=== PATIENT | male | born 1990 | race Caucasian/White ===

== ENCOUNTER 2016-06-17 06:53 | Emergency (ER) | payer MEDICAID ==
[2016-06-17] MEDS ORDERED: KETOROLAC 30 MG/1 ML SDV IVP ONE (07:20)
[2016-06-17] MEDS ORDERED: NS 1,000 ML IV ONE (07:20)
--- NOTE | 2016-06-17 07:24 | EDPHY ---
H & P Stated Complaint: RUQ pain off and on x weeks; woke up last night with worsening pain Time Seen by Provider: 06/17/16 07:08 HPI/ROS: CHIEF COMPLAINT: Right upper quadrant pain History by patient HISTORY OF PRESENT ILLNESS: 25-year-old man with no significant past medical history presents complaining of intermittent right upper quadrant pain which he describes as sharp and has been going on and off for 1-2 weeks but then this morning he woke up with the pain it is much more severe than previous episodes and lasting much longer. He describes it as sharp, throbbing and steady. It is worse when he takes a deep breath in but he denies any shortness of breath. It is not worse with movement. It does not radiate to his back or his groin. It is not associated any nausea or vomiting. He says he does not feel like eating when he has the pain but the pain does not seem to be brought on her affected by eating. He denies any fever chills. He says he has had a cough but he does not relate this to the pain either. He denies any dysuria, urgency frequency or hematuria. There is no family history of kidney stones or clotting disorders. He smokes E cigarettes. REVIEW OF SYSTEMS: As in HPI, and all other systems reviewed and are negative - Personal History Current Tetanus/Diphtheria Vaccine: Yes Tetanus Vaccine Date: 2012 - Medical/Surgical History Hx Asthma: No Hx Chronic Respiratory Disease: No Hx Diabetes: No Hx Cardiac Disease: No Hx Renal Disease: No Hx Cirrhosis: No Hx Alcoholism: No Hx HIV/AIDS: No Hx Splenectomy or Spleen Trauma: No Other PMH: knee surgery - Family History Significant Family History: No pertinent family hx - Social History Smoking Status: Never smoked - Physical Exam Exam: General Appearance: Alert, uncomfortable appearing, diaphoretic. Eyes: Pupils equal and round no pallor or injection. ENT, Mouth: Mucous membranes moist. Respiratory: Normal, effort, There are no retractions, lungs are clear to auscultation. Cardiovascular: Regular rate and rhythm. Gastrointestinal: Abdomen is soft with mild right upper quadrant tenderness but no rebound or guarding, no Harley sign, no masses, bowel sounds normal. Back: Positive right CVA tenderness Neurological: Awake, alert and oriented x 3, no pronator drift, normal gait, no pronator drift Skin: Warm and dry, no rashes. Musculoskeletal: Neck is supple nontender. Extremities are symmetrical, full range of motion. Psychiatric: Patient has normal affect, there is no agitation. Constitutional: Initial Vital Signs Temperature (C) 36.6 C 06/17/16 06:59 Heart Rate 66 06/17/16 06:59 Respiratory Rate 20 06/17/16 06:59 Blood Pressure 161/102 H 06/17/16 06:59 O2 Sat (%) 98 06/17/16 06:59 O2 Delivery Mode Room Air Allergies/Adverse Reactions: No Known Allergies Allergy (Verified 06/17/16 07:03) Home Medications: Medication Instructions Recorded Adderall 10 MG (RX) 02/17/14 Medical Decision Making - Diagnostics Imaging Results: Imaging Impressions Chest X-Ray 06/17/16 07:43 Impression: No acute pulmonary disease. Abdomen Ultrasound 06/17/16 09:12 Impression: 1. No cholelithiasis or biliary ductal dilation. 2. Hepatomegaly. Findings and recommendations discussed with Emergency Department physician, Rebeca Ortega MD at 10:43 hour, 06/17/2016. Final report concurs with initial preliminary interpretation. ED Course/Re-evaluation: 25-year-old male presents with right upper quadrant pain without associated symptoms but with some right upper quadrant tenderness. Labs notable for elevated white blood cell count but no evidence of hepatitis, pancreatitis or biliary obstruction. Urinalysis showed no evidence of bladder infection. Ultrasound was obtained of his right upper quadrant because I was concerned about his persistent right upper quadrant tenderness however there are no signs of gallstones, cholecystitis or other abnormality per the radiologist. Patient was given IV fluids and IV Toradol with significant symptomatic improvement. At this time because his symptoms are unclear but there is no evidence of any significant systemic toxicity or serious emergent pathology. Patient was given reassurance will follow up with primary care physician of his symptoms persist. We discussed return precautions. - Data Points Laboratory Results: Laboratory Results 06/17/16 07:10 06/17/16 07:10 06/17/16 06/17/16 06/17/16 09:07 08:08 07:10 WBC RBC Hgb Hct MCV MCH MCHC RDW Plt Count MPV Neut % (Auto) Lymph % (Auto) Butts % (Auto) Eos % (Auto) Baso % (Auto) Nucleat RBC Rel Count Absolute Neuts (auto) Absolute Lymphs (auto) Absolute Monos (auto) Absolute Eos (auto) Absolute Basos (auto) Absolute Nucleated RBC Immature Gran % Immature Gran # D-Dimer < 0.27 ug/mLFEU ug/mLFEU (0.00-0.50) Sodium 141 mEq/L mEq/L (134-144) Potassium 4.5 mEq/L mEq/L (3.5-5.2) Chloride 110 mEq/L mEq/L (97-110) Carbon Dioxide 15 mEq/l L mEq/l (22-31) Anion Gap 16 mEq/L mEq/L (8-16) BUN 12 mg/dL mg/dL (7-23) Creatinine 0.8 mg/dL mg/dL (0.7-1.3) Estimated GFR > 60 Glucose 94 mg/dL mg/dL (70-100) Calcium 8.9 mg/dL mg/dL (8.5-10.4) Total Bilirubin 0.5 mg/dL mg/dL (0.1-1.4) Conjugated Bilirubin 0.4 mg/dL mg/dL (0.0-0.5) Unconjugated Bilirubin 0.1 mg/dL mg/dL (0.0-1.1) AST 27 IU/L IU/L (17-59) ALT 24 IU/L IU/L (21-72) Alkaline Phosphatase 59 IU/L IU/L (38-126) Total Protein 7.0 g/dL g/dL (6.3-8.2) Albumin 3.9 g/dL g/dL (3.5-5.0) Lipase 117.0 IU/L IU/L (23-300) Urine Color YELLOW Urine Appearance CLEAR Urine pH 5.5 (5.0-7.5) Ur Specific Mccaskill >= 1.030 (1.002-1.030) Urine Protein NEGATIVE (NEGATIVE) Urine Ketones NEGATIVE (NEGATIVE) Urine Blood NEGATIVE (NEGATIVE) Urine Nitrate NEGATIVE (NEGATIVE) Urine Bilirubin NEGATIVE (NEGATIVE) Urine Urobilinogen 0.2 EU EU (0.2-1.0) Ur Leukocyte Esterase NEGATIVE (NEGATIVE) Urine Glucose NEGATIVE (NEGATIVE) 06/17/16 07:10 WBC 10.33 10^3/uL H 10^3/uL (3.80-9.50) RBC 5.18 10^6/uL 10^6/uL (4.40-6.38) Hgb 15.4 g/dL g/dL (13.7-17.5) Hct 45.1 % % (40.0-51.0) MCV 87.1 fL fL (81.5-99.8) MCH 29.7 pg pg (27.9-34.1) MCHC 34.1 g/dL g/dL (32.4-36.7) RDW 13.2 % % (11.5-15.2) Plt Count 192 10^3/uL 10^3/uL (150-400) MPV 11.7 fL fL (8.7-11.7) Neut % (Auto) 63.0 % % (39.3-74.2) Lymph % (Auto) 25.7 % % (15.0-45.0) Butts % (Auto) 8.0 % % (4.5-13.0) Eos % (Auto) 1.8 % % (0.6-7.6) Baso % (Auto) 1.1 % % (0.3-1.7) Nucleat RBC Rel Count 0.0 % % (0.0-0.2) Absolute Neuts (auto) 6.51 10^3/uL H 10^3/uL (1.70-6.50) Absolute Lymphs (auto) 2.65 10^3/uL 10^3/uL (1.00-3.00) Absolute Monos (auto) 0.83 10^3/uL H 10^3/uL (0.30-0.80) Absolute Eos (auto) 0.19 10^3/uL 10^3/uL (0.03-0.40) Absolute Basos (auto) 0.11 10^3/uL H 10^3/uL (0.02-0.10) Absolute Nucleated RBC 0.00 10^3/uL 10^3/uL (0-0.01) Immature Gran % 0.4 % % (0.0-1.1) Immature Gran # 0.04 10^3/uL 10^3/uL (0.00-0.10) D-Dimer Sodium Potassium Chloride Carbon Dioxide Anion Gap BUN Creatinine Estimated GFR Glucose Calcium Total Bilirubin Conjugated Bilirubin Unconjugated Bilirubin AST ALT Alkaline Phosphatase Total Protein Albumin Lipase Urine Color Urine Appearance Urine pH Ur Specific Mccaskill Urine Protein Urine Ketones Urine Blood Urine Nitrate Urine Bilirubin Urine Urobilinogen Ur Leukocyte Esterase Urine Glucose Medications Given: Discontinued Medications Sodium Chloride (Ns) 1,000 mls @ 0 mls/hr IV ONCE ONE PRN Reason: Wide Open Stop: 06/17/16 07:21 Last Admin: 06/17/16 07:30 Dose: 1,000 mls Ketorolac Tromethamine (Toradol) 30 mg IVP EDNOW ONE Stop: 06/17/16 07:21 Last Admin: 06/17/16 07:33 Dose: 30 mg Departure - Departure Disposition: Home, Routine, Self-Care Clinical Impression: Right upper quadrant pain Condition: Good Instructions: Abdominal Pain (ED) Additional Instructions: You were seen by Dr. Rebeca Ortega today. Return for any worsening or new concerns. Follow up with her primary care physician if her symptoms persist. Return if you get worse or develop new symptoms. It is safe to take ibuprofen 600 mg 4 times a day and/or Tylenol 650 mg every 4 hours. Referrals: NONE *PRIMARY CARE P,. [Unknown] - As per Instructions Stand Alone Forms: Work Excuse
[2016-06-17 07:31] LABS: % IMMATURE GRANULYOCYTES 0.4 % (0.0-1.1); ABSOLUTE IMMATURE GRANULOCYTES 0.04 10^3/uL (0.00-0.10); ADD DIFF? NO; ADD MORPH? NO; ADD SCAN? NO; ATYPICAL LYMPHOCYTE FLAG 10 (0-99); FRAGMENT RBC FLAG 0 (0-99); HEMATOCRIT 45.1 % (40.0-51.0); HEMOGLOBIN 15.4 g/dL (13.7-17.5); LEFT SHIFT FLG 0 (0-99); LIPEMIA HEMOLYSIS FLAG 90 (0-99); MEAN CELL HEMOGLOBIN 29.7 pg (27.9-34.1); MEAN CELL HEMOGLOBIN CONCENTR. 34.1 g/dL (32.4-36.7); MEAN CELL VOLUME 87.1 fL (81.5-99.8); MEAN PLATELET VOLUME 11.7 fL (8.7-11.7); PLATELET CLUMPS FLAG 10 (0-99); PLATELET COUNT 192 10^3/uL (150-400); RED BLOOD CELL COUNT 5.18 10^6/uL (4.40-6.38); RED CELL DISTRIBUTION WIDTH 13.2 % (11.5-15.2)
[2016-06-17 07:37] LABS: ALANINE AMINOTRANSFERASE 24 IU/L (21-72); ALBUMIN 3.9 g/dL (3.5-5.0); ALKALINE PHOSPHATASE 59 IU/L (38-126); ANION GAP 16 mEq/L (8-16); ASPARTATE AMINOTRANSFERASE 27 IU/L (17-59); BILIRUBIN,TOTAL 0.5 mg/dL (0.1-1.4); BILIRUBIN-CONJUGATED 0.4 mg/dL (0.0-0.5); BILIRUBIN-UNCONJUGATED 0.1 mg/dL (0.0-1.1); CALCIUM 8.9 mg/dL (8.5-10.4); CARBON DIOXIDE 15 mEq/l (22-31); CHLORIDE 110 mEq/L (97-110); CREATININE 0.8 mg/dL (0.7-1.3); GLOMERULAR FILTRATION RATE > 60; GLUCOSE 94 mg/dL (70-100); POTASSIUM 4.5 mEq/L (3.5-5.2); SODIUM 141 mEq/L (134-144)
[2016-06-17 09:09] LABS: COLOR YELLOW; LEUKOCYTE ESTERASE,URINE NEGATIVE (NEGATIVE); NITRITE,URINE NEGATIVE (NEGATIVE); PH,URINE 5.5 (5.0-7.5)
[2016-06-17 11:04] VITALS: BP 126/58; PULSE 85; RESP 14; TEMP 98.1; O2SAT 94
== END 2016-06-17 11:08 | disposition home or self-care (01) ==
LOC: CED 06:53 → SUPCPDRO 06:53 → CED 11:08
DX: R10.11 Right upper quadrant pain (principal)
CPT/HCPCS: 71020-PO; 76705-PO; 80048-PO; 80076-PO; 81003-PO; 83690-PO; 85025-PO; 85378-PO; 96374; J1885